=== PATIENT | female | born 1975 | race American Indian/Alaskan Native ===

== ENCOUNTER 2018-12-05 15:22 | Emergency (ER) | payer MEDICARE ==
[2018-12-05] MEDS ORDERED: methylPREDNISolone ACETATE 80 MG/1 ML INJ IM ONE (16:50)
[2018-12-05] MEDS ORDERED: CYCLOBENZAPRINE 10 MG TAB PO ONE (16:50)
[2018-12-05] MEDS ORDERED: HYDROcodone/ACETAMINOPHEN 10-325MG TAB PO ONE (16:50)
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
[2018-12-05 18:04] VITALS: BP 127/84
== END 2018-12-05 18:04 | disposition home or self-care (01) ==
LOC: ED 15:22
DX: S16.1XXA Strain of muscle, fascia and tendon at neck level, initial encounter (principal); V89.2XXA Person injured in unspecified motor-vehicle accident, traffic, initial encounter; Y93.89 Activity, other specified; Y92.410 Unspecified street and highway as the place of occurrence of the external cause; Y99.8 Other external cause status
CPT/HCPCS: 96372; 99282; J1040

== ENCOUNTER 2020-01-10 16:19 | Emergency (ER) | payer MEDICARE ==
--- NOTE | 2020-01-10 16:54 | Event Note ---
ED Screening Note Date of service: 01/10/20 Time: 16:52 ED Screening Note: 44-year-old -[place] female presents to the emergency room for fever chills night sweats shortness of breath headache eyes pain body aches decreased appetite. Denies any nausea vomiting no abdominal pain. Denies any COVID-19 contact. Has a history of diabetes hypertension HIV and arthritis. Patient states that she takes all her medications as prescribed. She reports that her viral load is undetectable. She takes Biktarvy and Lovenox for her arthritis. She reports she is recently diagnosed with diabetes. This initial assessment/diagnostic orders/clinical plan/treatment(s) is/are subject to change based on patients health status, clinical progression and re- assessment by fellow clinical providers in the ED. Further treatment and workup at subsequent clinical providers discretion. Patient/guardian urged not to elope from the ED as their condition may be serious if not clinically assessed and managed. Initial orders include:
[2020-01-10 17:29] LABS: Basophils % (Auto) 0.3 % (0.0-1.8); Hematocrit 40.8 % (30.3-42.9); Lymphocytes # (Auto) 2.6 K/mm3 (1.2-5.4); Lymphocytes % (Auto) 46.7 % (13.4-35.0); Mean Corpuscular HGB Conc 34 % (30-34); Mean Corpuscular Volume 90 fl (79-97); Monocytes # (Auto) 0.7 K/mm3 (0.0-0.8); Monocytes % (Auto) 13.2 % (0.0-7.3); Platelet Count 235 K/mm3 (140-440); Red Blood Count 4.55 M/mm3 (3.65-5.03); Red Cell Distribution Width 12.7 % (13.2-15.2)
--- NOTE | 2020-01-10 17:46 | XRay Report ---
CHEST 2 VIEWS INDICATION / CLINICAL INFORMATION: Cough fever chills. COMPARISON: None available. FINDINGS: SUPPORT DEVICES: None. HEART / MEDIASTINUM: No significant abnormality. LUNGS / PLEURA: No significant pulmonary or pleural abnormality. No pneumothorax. ADDITIONAL FINDINGS: No significant additional findings. IMPRESSION: 1. No acute findings. Signer Name: Leonarda Dtoy MD Signed: 01/10/2020 5:42 PM Workstation Name: [id number]
[2020-01-10 17:50] LABS: Alanine Aminotransferase 35 units/L (7-56); Albumin 4.2 g/dL (3.9-5); BUN/Creatinine Ratio 8; Blood Urea Nitrogen 10 mg/dL (7-17); Calcium 9.7 mg/dL (8.4-10.2); Hemolysis Index 8
[2020-01-10 17:51] LABS: Bacteria,Urine 2+ /HPF (Negative); Bilirubin,Urine NEG (Negative); Blood,Urine SM (Negative); Color,Urine Yellow (Yellow); Mucus,Urine 3+ /HPF
[2020-01-10 17:54] LABS: Bilirubin,Direct < 0.2 mg/dL (0-0.2)
[2020-01-10] MEDS ORDERED: methylPREDNISolone Sod Succinate 125 MG/2 ML INJ IV ONE (17:58)
[2020-01-10] MEDS ORDERED: BENZONATATE 100 MG CAP PO ONE (17:58)
[2020-01-10] MEDS ORDERED: SODIUM CHLORIDE 0.9% 1000 ML 1,000 ML IV ONE (17:58)
[2020-01-10] MEDS ORDERED: IPRATROPIUM/ALBUTEROL SULFATE 3 ML AMPUL.NEB IH ONE (17:59)
--- NOTE | 2020-01-10 18:11 | Emergency Department Report ---
HPI - General Chief Complaint: Pain General Time Seen by Provider: 01/10/20 17:51 - HPI HPI: This is a 44-year-old female who presents to the emergency department with complaint of a 4-day history of "I am sick." The patient has been having some chills, subjective fever, sweats, coughing and body aches. Patient says that her sister and niece, whom she lives with, have both had some upper respiratory type symptoms. Patient took some TheraFlu for her symptoms yesterday without any relief. She has a past medical history of hypertension and HIV. She follows up with the ID clinic for primary care. No recent travel. She denies any sore throat, ear pain, chest pain, abdominal pain, nausea, vomiting. No known alleviating factors. Patient says that her symptoms worsen when she is laying down flat, as then she also developed a headache and "I cannot sleep." ED Past Medical Hx - Past Medical History Previous Medical History?: Yes Hx Hypertension: Yes Additional medical history: OBESE, HIV, CHRONIC BACK PAIN WITH 2 BULGING DISCS - Surgical History Past Surgical History?: Yes Additional Surgical History: R hip replacement, ruptured disc in the back - Social History Smoking Status: Never Smoker Substance Use Type: None - Medications Home Medications: Home Medications Medication Instructions Recorded Confirmed Last Taken Type Cyclobenzaprine [Flexeril] 10 mg PO TID PRN #10 tablet 12/05/18 Unknown Rx Ibuprofen [Motrin] 800 mg PO Q8HR PRN #30 tablet 12/05/18 Unknown Rx Albuterol Mdi (or & Nicu Only) 2 puff IH QID PRN #8.5 gram 01/10/20 Unknown Rx [ProAir HFA Inhaler] Benzonatate [Tessalon Perles] 100 mg PO Q8HR PRN #20 capsule 01/10/20 Unknown Rx predniSONE [Deltasone] 20 mg PO DAILY #5 tablet 01/10/20 Unknown Rx ED Review of Systems ROS: Stated complaint: CHILLS/FEVER/SOB/BODY ACHES Other details as noted in HPI Comment: All other systems reviewed and negative Constitutional: chills, fever (subjective) Eyes: denies: eye pain, vision change ENT: denies: ear pain, throat pain Respiratory: cough, wheezing Cardiovascular: denies: chest pain, palpitations Gastrointestinal: denies: abdominal pain, vomiting Genitourinary: denies: dysuria, discharge Musculoskeletal: myalgia. denies: joint swelling Skin: denies: rash, lesions Neurological: headache. denies: numbness Physical Exam - Physical Exam Vital Signs: Vital Signs 01/10/20 16:27 Temperature 100.2 F H Pulse Rate 109 H Respiratory 20 Rate Blood Pressure 145/97 O2 Sat by Pulse 97 Oximetry Physical Exam: GENERAL: The patient is well-developed well-nourished. HENT: Normocephalic. Atraumatic. Patient has moist mucous membranes. EYES: Extraocular motions are intact. NECK: Supple. Trachea is midline. CHEST/LUNGS: Mild wheezing throughout the chest. There is a dry cough heard with coughing fits. No tachypnea accessory muscle use. HEART/CARDIOVASCULAR: Regular. There is mild tachycardia. There is no murmur. ABDOMEN: Abdomen is soft, nontender. Patient has normal bowel sounds. There is no abdominal distention. SKIN: Skin is warm and dry. NEURO: The patient is awake, alert, and oriented. The patient is cooperative. Normal speech. MUSCULOSKELETAL: There is no tenderness or deformity. There is no limitation range of motion. ED Course Vital Signs 01/10/20 16:27 Temperature 100.2 F H Pulse Rate 109 H Respiratory 20 Rate Blood Pressure 145/97 O2 Sat by Pulse 97 Oximetry - Reevaluation(s) Reevaluation #1: 01/10/20 22:50 Lab Results 01/10/20 01/10/20 01/10/20 Range/Units 17:18 17:18 Unknown WBC 5.6 (4.5-11.0) K/mm3 RBC 4.55 (3.65-5.03) M/mm3 Hgb 14.0 (10.1-14.3) gm/dl Hct 40.8 (30.3-42.9) % MCV 90 (79-97) fl MCH 31 (28-32) pg MCHC 34 (30-34) % RDW 12.7 L (13.2-15.2) % Plt Count 235 (140-440) K/mm3 Lymph % (Auto) 46.7 H (13.4-35.0) % [place] % (Auto) 13.2 H (0.0-7.3) % Eos % (Auto) 0.0 (0.0-4.3) % Baso % (Auto) 0.3 (0.0-1.8) % Lymph # (Auto) 2.6 (1.2-5.4) K/mm3 [place] # (Auto) 0.7 (0.0-0.8) K/mm3 Eos # (Auto) 0.0 (0.0-0.4) K/mm3 Baso # (Auto) 0.0 (0.0-0.1) K/mm3 Seg Neutrophils % 39.8 L (40.0-70.0) % Seg Neutrophils # 2.2 (1.8-7.7) K/mm3 Sodium 140 (137-145) mmol/L Potassium 3.5 L (3.6-5.0) mmol/L Chloride 99.3 (98-107) mmol/L Carbon Dioxide 27 (22-30) mmol/L Anion Gap 17 mmol/L BUN 10 (7-17) mg/dL Creatinine 1.3 H (0.6-1.2) mg/dL Estimated GFR 53 ml/min BUN/Creatinine Ratio 8 % Glucose 109 H (65-100) mg/dL Calcium 9.7 (8.4-10.2) mg/dL Total Bilirubin 0.20 (0.1-1.2) mg/dL Direct Bilirubin < 0.2 (0-0.2) mg/dL Indirect Bilirubin 0.0 mg/dL AST 43 H (5-40) units/L ALT 35 (7-56) units/L Alkaline Phosphatase 72 (35-129) units/L Total Protein 8.6 H (6.3-8.2) g/dL Albumin 4.2 (3.9-5) g/dL Albumin/Globulin Ratio 1.0 % Urine Color Yellow (Yellow) Urine Turbidity Slightly-cloudy (Clear) Urine pH 5.0 (5.0-7.0) Ur Specific [place] 1.019 (1.003-1.030) Urine Protein 30 mg/dl (Negative) mg/dL Urine Glucose (UA) Neg (Negative) mg/dL Urine Ketones Neg (Negative) mg/dL Urine Blood Sm (Negative) Urine Nitrite Neg (Negative) Urine Bilirubin Neg (Negative) Urine Urobilinogen 2.0 (<2.0) mg/dL Ur Leukocyte Esterase Neg (Negative) Urine WBC (Auto) 9.0 H (0.0-6.0) /HPF Urine RBC (Auto) 22.0 (0.0-6.0) /HPF U Epithel Cells (Auto) 25.0 H (0-13.0) /HPF Urine Bacteria (Auto) 2+ (Negative) /HPF Urine Mucus 3+ /HPF Reevaluation #2: 01/10/20 22:50 Vital Signs 01/10/20 01/10/20 01/10/20 16:27 17:52 18:00 Temperature 100.2 F H Pulse Rate 109 H 106 H Pulse Rate [ Bilateral Throughout] Respiratory 20 22 Rate Respiratory Rate [Bilateral Throughout] Blood Pressure 145/97 140/84 O2 Sat by Pulse 97 99 97 Oximetry 01/10/20 01/10/20 01/10/20 19:00 19:41 20:00 Temperature Pulse Rate 95 H 99 H Pulse Rate [ 95 H Bilateral Throughout] Respiratory 14 16 Rate Respiratory 18 Rate [Bilateral Throughout] Blood Pressure 119/69 115/66 O2 Sat by Pulse 96 97 Oximetry ED Medical Decision Making - Lab Data Result diagrams: 01/10/20 17:18 01/10/20 17:18 - Radiology Data Radiology results: image reviewed interpreted by me: Chest x-ray does not show any acute process. There are no pleural effusions, obvious pneumonia and there is no pneumothorax. No significant cardiomegaly. - Medical Decision Making This patient presents with a 4-day history of some body aches, chills, cough. Patient presents with a low-grade fever of 100.2 F. Chest x-ray does not show any pneumonia, pleural effusions, pneumothorax, or any other acute process. Patient's labs have been mostly unremarkable including CBC, metabolic panel, and urinalysis, except for very mild renal insufficiency with a GFR of 53. The urinalysis was not impressive for a urinary tract infection as there was only 9 white blood cells listed, with 23 epithelial cells, and there is no leukocyte esterase or nitrates. On examination the patient had a bronchospastic cough with coughing fits, and some mild wheezing, but she does not appear in any respiratory or acute distress. The rest of the patient's labs have been reassuring throughout her ED course. The patient was given a dose of steroids, an antitussive, and breathing treatment. Upon reevaluation she is feeling impro diana and the symptoms appear to have improved as well. The patient appears consistent with a viral upper respiratory infection and some bronchospasm. Patient will be treated with a course of steroids and an albuterol inhaler, as well as an antitussive medication. Given the current pandemic, it is always possible the patient could have COVID-19. I am unable to do [id number] testing for COVID-19. The patient has been instructed to isolate/quarantine herself and stay away from those that are elderly, immunocompromised or chronically ill/debilitated. We discussed seeking outpatient COVID-19 testing. She will return to the emergency department with any worsening of her symptoms or with any acute distress. Critical care attestation.: If time is entered above; I have spent that time in minutes in the direct care of this critically ill patient, excluding procedure time. ED Disposition Clinical Impression: Viral upper respiratory infection, Bronchitis, Bronchospasm Disposition: - TO HOME OR SELFCARE Is pt being admited?: No Condition: Stable Instructions: Bronchospasm, Adult, Upper Respiratory Infection, Adult, Chronic Bronchitis (ED) Additional Instructions: Please follow-up with your primary care physician in the next few days. Your symptoms, as well as your work-up this evening, appear most consistent with a viral upper respiratory infection. Given the current pandemic it is possible that this could be COVID-19. I am unable to test you for COVID-19 at this time. I recommend that you isolate/quarantine and stay away from anybody who is elderly, immunocompromised, or chronically ill/debilitated. Please seek outpatient COVID-19 testing. This can be done at some primary care offices, some urgent cares, and there should be a listing of testing facilities through the [facility]. Take the medications as prescribed. Return to the emergency department with any worsening of your symptoms, new or concerning symptoms not addressed during this current emergency department visit, or with any acute distress. Prescriptions: predniSONE [Deltasone] 20 mg PO DAILY #5 tablet Albuterol Mdi (or & Nicu Only) [ProAir HFA Inhaler] 2 puff IH QID PRN #8.5 gram PRN Reason: Shortness Of Breath Benzonatate [Tessalon Perles] 100 mg PO Q8HR PRN #20 capsule PRN Reason: Cough Referrals: PRIMARY CARE, [Primary Care Provider] - 2-3 Days Time of Disposition: 20:13
[2020-01-10] MEDS ORDERED: ACETAMINOPHEN 325 MG TAB PO ONE (19:22)
[2020-01-10 20:59] VITALS: BP 115/66
== END 2020-01-10 20:54 | disposition home or self-care (01) ==
LOC: ED 16:19
DX: J20.9 Acute bronchitis, unspecified (principal); J06.9 Acute upper respiratory infection, unspecified
CPT/HCPCS: 36415; 71046; 80048; 80076; 81001; 85025; 87086; 94640; 96361; 96374; 99284; J2930; J7030; 94644